=== PATIENT | female | born 2000 | race Caucasian/White ===

== ENCOUNTER 2019-03-01 19:41 | Day surgery (SDC) | payer OTHER ==
[2019-03-01 20:23] VITALS: BP 115/79; TEMP 99; BMI 26.7
[2019-03-01] MEDS ORDERED: hydrALAZINE 20 MG/ML VIAL SLOW IVP PRN (20:46)
[2019-03-01 20:48] LABS: Amnisure Test No Membranes Rupture (No Rupture)
[2019-03-01 20:49] LABS: Amnisure Internal Control QC ACCEPTABLE (ACCEPTABLE)
[2019-03-01] MEDS ORDERED: FLU VACC QS2019-20(6MOS UP)/PF 60 MCG/0.5 ML SYRINGE IM ONE (21:00)
--- NOTE | 2019-03-01 21:27 | PRG ---
DATE OF SERVICE: 03/01/2019 TIME: 2105. STERILE SPECULUM EXAMINATION: I explained to the patient and her family members the process of a sterile spec exam. The AmniSure returned negative. I performed a sterile spec to confirm that the AmniSure was valid. I do not see any true evidence of leakage with the speculum exam and the Valsalva and cough were not impressive. However, I suspect that she may have a mild yeast infection, so I collected a VPIII and we are calling the lab to make sure that this is being run Post-A-Vox. If it is not run Post-A-Vox, she will have to follow up tomorrow for these results again. Job ID: [id number]
--- NOTE | 2019-03-01 21:29 | HP ---
TIME OF EVALUATION: Roughly 2044. LOCATION: Triage. This is a patient of Dr. Gomes. CHIEF COMPLAINT: This is a patient who complains of "leakage" after being checked earlier today in the office by Dr. Gomes, who called her 2-3 cm dilated. HISTORY OF PRESENT ILLNESS: This is a 18-year-old, G1, P0, with a known history of epilepsy (stable), who is on Keppra, who presents now with an EDC of March 13, putting her at 38 weeks and 2 days, who states that she was checked in the office today and has a slow amount of leakage, but she denies a large gush of fluid or vaginal bleeding. She has good movement. She denies fevers. REVIEW OF SYSTEMS: Complete review of systems was checked and is otherwise negative unless specified in the HPI. PAST MEDICAL HISTORY: Significant for her epilepsy, for which she takes Keppra. PAST SURGICAL HISTORY: Tonsils and adenoids. ALLERGIES: NONE. OB HISTORY: She is a G1, P0. PHYSICAL EXAMINATION: VITAL SIGNS: Her blood pressure is 115/75, temperature is 99.0, her pulse is in the 90s, although it was initially 120 when she first arrived, possibly due to slight anxiety. Her O2 saturation is now 100% on room air, and respirations are 18 and nonlabored. ABDOMEN: Soft, nontender. PELVIC: Reveals a cervix of 2 cm dilation, 50% effaced, -2 and posterior (this was by the RN prior to calling me). Sterile speculum exam is pending as I am awaiting a speculum. Interventions ordered. I have ordered an AmniSure and that is pending. monitor, heart tones are category 1 and reassuring with a normal rate of about 130 to 140. Contractions are irregular and sporadic contractions. ASSESSMENT: This is a 18-year-old, G1, P0, at early term (38 weeks and 2 days) with "leakage" after exam today. Leakage of fluid may be part of the gel, which was used on the exam, or maybe rupture of membranes. I have ordered an AmniSure and sterile speculum to assess. PLAN: 1. AmniSure sent and pending. 2. Sterile speculum exam about to be performed. 3. We will admit if there is concern for rupture of membranes. Job ID: [id number]
--- NOTE | 2019-03-01 22:16 | PDOC.EVN ---
Event Note - Event Note Event Note: VP3 with BV and yeast: will give difllucan here and write a RX for flagyl x 7 days
[2019-03-01] MEDS ORDERED: Fluconazole 100 MG TAB PO SCH (22:30)
== END 2019-03-01 23:00 | disposition home or self-care (01) ==
LOC: L&D/OP 19:41
PROVIDERS: ATTEND Obstetrics & Gynecology
DX: O98.813 Other maternal infectious and parasitic diseases complicating pregnancy, third trimester (principal); B37.3 Candidiasis of vulva and vagina; O23.593 Infection of other part of genital tract in pregnancy, third trimester; B96.89 Other specified bacterial agents as the cause of diseases classified elsewhere; O99.353 Diseases of the nervous system complicating pregnancy, third trimester; G40.909 Epilepsy, unspecified, not intractable, without status epilepticus; Z3A.38 38 weeks gestation of pregnancy; Z79.899 Other long term (current) drug therapy
CPT/HCPCS: 84112; 87480; 87510; 87660; 99285

== ENCOUNTER 2019-03-10 14:05 | Inpatient (IN) | payer OTHER ==
[2019-03-10 14:34] VITALS: BMI 26.7
[2019-03-10] MEDS: Lactated Ringer's 1,000 ML IV SCH ×2 (14:57→15:45)
[2019-03-10] MEDS ORDERED: NS w/ Oxytocin 10 units 500 ML IV SCH (15:06)
[2019-03-10] MEDS ORDERED: Butorphanol Tartrate 1 MG/ML VIAL SLOW IVP PRN (15:06)
[2019-03-10] MEDS ORDERED: hydrALAZINE 20 MG/ML VIAL SLOW IVP PRN ×2 (15:06→18:40)
[2019-03-10] MEDS ORDERED: Promethazine HCl 25 MG/ML VIAL IM PRN (15:06)
[2019-03-10] MEDS ORDERED: NS / Oxytocin 40 units/1000ml 1,000 ML IV PRN (15:06)
[2019-03-10] MEDS ORDERED: Ondansetron PF 4 MG/2 ML Vial IVP PRN ×2 (15:06→18:40)
[2019-03-10] MEDS ORDERED: HYDROcodone/Acetaminophen 5/325 mg Tablet PO PRN ×4 (15:06→18:40)
[2019-03-10] MEDS ORDERED: Lidocaine 1% (PF) 30 ML VIAL SC PRN (15:06)
[2019-03-10] MEDS ORDERED: Lactated Ringer's 1,000 ML IV SCH (15:06)
[2019-03-10] MEDS ORDERED: Ibuprofen 800 MG TAB PO PRN (15:06)
[2019-03-10 15:26] LABS: Mean Corpuscular HGB CONC 32.5 g/dL (32.0-36.0); Mean Corpuscular Hemoglobin 24.7 pg (25.0-35.0); Mean Corpuscular Volume 75.9 fL (78.0-98.0); Mean Platelet Volume 8.6 fL (7.4-10.4); Platelet Count 267 thou/uL (130-400); RBC Distribution Width 13.1 % (11.5-14.5); Red Blood Cell (RBC) Count 4.85 mill/uL (4.00-5.20); White Blood Cell (WBC) Count 20.4 thou/uL (4.8-10.8)
--- NOTE | 2019-03-10 15:44 | PDOC.LDHP ---
Labor and Delivery H&P Chief complaint: contractions HPI: Pt is a 18yo G1 @ 39 weeks who presents in active labor. Current gestational age (weeks): 39 Due date: 03/13/19 Dating criteria: first trimester ultrasound (8 week US) Grav: 1 Current complications: none Past Medical History: seizure disorder, medication noncompliance (Keppra) Current medications: pre- vitamins, other (irregular Keppra use) Allergies/Adverse Reactions: Allergies Allergy/AdvReac Type Severity Reaction Status Date / Time No Known Allergies Allergy Verified 03/01/19 20:18 Social history: drug use (remote hx of MJ use, neg UDS in preg) - Physical Exam Vital signs reviewed and normal: yes General: NAD Lungs: nonlabored breathing Abdomen: gravid Extremeties: no edema FHT: category 1 - Vaginal Exam cm dilated: 6 Effacement: 75% - OB Labs Blood type: A RH: positive Antibody Screen: negative HIV: negative RPR: negative HEPSAg: negative 1 hour GCT: negative GBS: negative Urine drug screen: negative Rubella: immune - Assessment L&D Assessment: term patient in labor - Plan Plan: admit to L&D, labor augmentation if indicated, informed consent obtained, anesthesia consult for pain management
[2019-03-10 16:04] LABS: HBSAg Index 0.25 S/CO (0-0.99); Hep B Surf Ag Non-Reactive S/CO (NonReactive); Syphilis Antibody Nonreactive (Nonreactive); Syphilis Antibody Index 0.03 S/CO (<1.00 Non-Reactive)
--- NOTE | 2019-03-10 17:02 | PDOC.OPDEL ---
OB Operative/Delivery Note Delivery Dr/Surgeon: Gil/Eliseo Pre-Delivery Diagnosis: active labor Weeks gestation: 39 Anesthesia: local - Findings A Sex: male - 1 min: 9 - 5 min: 9 - Additional Findings/Plan Placenta delivered: spontaneous Repaired Obstetrical Laceration: 2nd degree Estimated blood loss: 250ml Compilations/Other Findings: Arrived w baby w mom delivered by Dr. Cordero and pt ready for repair of 2nd degree, at which time I scrubbed in. Post delivery plan: routine recovery
--- NOTE | 2019-03-10 17:09 | OP ---
DATE OF PROCEDURE: 03/10/2019 PREOPERATIVE DIAGNOSIS: Term labor, Dr. Graeme Rosales patient with precipitous progress to delivery. POSTOPERATIVE DIAGNOSIS: Term labor, Dr. Graeme Rosales patient with precipitous progress to delivery. PROCEDURE PERFORMED: Spontaneous vaginal delivery with second-degree midline laceration, remainder of repair completed by Dr. Graeme Gomse. DESCRIPTION OF PROCEDURE: The patient was a patient of Dr. Graeme Gomes who is an active labor, progressed rapidly to complete complete. Once she began pushing despite being a primigravida, she proceeded to +4 station in a very rapid course. I presented to the room at approximately 4:[address] Gomes had been called for delivery. The patient was prepped and draped in the usual manner and she proceeded to deliver spontaneously over a midline laceration at 4:42 p.m. With a vigorous male , Apgars and weight are pending. Umbilical cord was clamped and cut in the usual manner after delay of approximately a minute and the placenta delivered intact. A 10 mL of lidocaine was injected on each side of the midline laceration for repair. Dr. Graeme Gomes presented at this time and she completed the repair of the laceration. DYLAN on further notes under Dr. Gomes. Job ID: [id number] [facility]
[2019-03-10] MEDS ORDERED: Bisacodyl 10 MG SUPP PR PRN (18:40)
[2019-03-10] MEDS ORDERED: Lanolin Ointment 7 GM TUBE TOP PRN (18:40)
[2019-03-10] MEDS ORDERED: NS / Oxytocin 40 units/1000ml 1,000 ML IV SCH (18:40)
[2019-03-10] MEDS ORDERED: Benzocaine-Menthol 82.5 ML CAN TOP PRN (18:40)
[2019-03-10] MEDS ORDERED: Milk Of Magnesia 30 ML UDCUP PO PRN (18:40)
[2019-03-10] MEDS ORDERED: Preparation H Ointment 28 GM TUBE PR PRN (18:40)
[2019-03-10] MEDS ORDERED: diphenhydrAMINE 25 MG CAP PO PRN (18:40)
[2019-03-10] MEDS: Docusate Calcium (SURFAK) 240 MG CAP PO SCH (19:48)
[2019-03-10] MEDS: Ibuprofen 800 MG TAB PO SCH (19:48)
--- NOTE | 2019-03-11 03:22 | PDOC.PP ---
Post Progress Note Post Day #: 1 Subjective: Patient doing well. No significant overnight events. Tolerating PO. Lochia minimal. PO intake tolerated: yes Flatus: yes Ambulation: yes Vital Signs (12 hours) Temp Pulse Resp BP BP Pulse Ox 03/10/19 23:10 98.8 F 116 H 18 99/56 L 03/10/19 21:20 113 H 113/57 L 03/10/19 20:30 99.4 F 114 H 03/10/19 20:15 99.9 F H 111 H 20 109/61 99 03/10/19 19:20 98.9 F 108 H 18 124/70 99 Weight Weight 70.76 kg - Physical Examination General: NAD Deviation from normal: RRR during my examination Respiratory: non-labored breathing Abdominal: lochia (minimal), no distention, appropriately TTP Fundus firm & at: just above umbilicus Skin: no rash Neurological: no gross focal deficits Psychiatric: A&Ox3, normal affect Result Diagrams: 03/10/19 15:08 Additional Labs: Post Labs Blood Type A POSITIVE 03/10/19 17:25 Hep Bs Antigen Non-Reactive S/CO (NonReactive) 03/10/19 15:08 (1) Term delivered Code(s): O80 - ENCOUNTER FOR FULL-TERM UNCOMPLICATED DELIVERY Status: Acute (2) Vaginal delivery Code(s): O80 - ENCOUNTER FOR FULL-TERM UNCOMPLICATED DELIVERY Status: Acute - Assessment/Plan Routine PP care - PP day #1 s/p uncomplicated - Rubella immune, Rh positive - Meeting all PP milestones - GBS negative 2nd degree perineal laceration - s/p repair, hemostatic Seizure disorder - Noncompliant with Keppra Tachycardia, appears resolved - Pulse 108-116, repeat prior to exam 86 - BP low 100's systolic - Leukocytosis noted on initial CBC, will repeat - Afebrile, temp high to 99.9 - Patient asymptomatic Dispo: Stable. Plan for d/c home tomorrow.
[2019-03-11] MEDS: Ibuprofen 800 MG TAB PO SCH ×3 (05:03→21:11)
[2019-03-11 06:37] LABS: #Lymphocytes 3.8 thou/uL (1.20-3.40); #Monocytes 1.9 thou/uL (0.11-0.59); #Neutrophils 15.8 thou/uL (1.40-6.50); %Basophils 0.1 % (0.0-1.0); %Eosinophils 0.2 % (0.0-10.0); %Lymphocytes 17.7 % (28.0-48.0); %Monocytes 8.9 % (0.0-4.0); %Neutrophils 73.1 % (31.0-61.0); Hemoglobin 9.9 g/dL (12.0-16.0); Mean Corpuscular HGB CONC 32.8 g/dL (32.0-36.0); Mean Platelet Volume 8.3 fL (7.4-10.4); Platelet Count 283 thou/uL (130-400); RBC Distribution Width 13.1 % (11.5-14.5); Red Blood Cell (RBC) Count 3.96 mill/uL (4.00-5.20); White Blood Cell (WBC) Count 21.7 thou/uL (4.8-10.8)
[2019-03-11] MEDS: Prenatal Vitamin 1 TAB PO SCH (08:40)
[2019-03-11] MEDS: Docusate Calcium (SURFAK) 240 MG CAP PO SCH ×2 (08:40→21:10)
[2019-03-11] MEDS: Ferrous Sulfate 325 MG TAB PO SCH ×2 (08:40→16:40)
[2019-03-11] MEDS ORDERED: Adacel (T-DAP) 0.5 ML SYRINGE IM ONE (09:00)
[2019-03-11] MEDS ORDERED: FLU VACC QS2019-20(6MOS UP)/PF 60 MCG/0.5 ML SYRINGE IM ONE (09:00)
[2019-03-11 17:14] VITALS: TEMP 98.1
[2019-03-12] MEDS: Ibuprofen 800 MG TAB PO SCH ×2 (04:11→13:21)
[2019-03-12] MEDS: Docusate Calcium (SURFAK) 240 MG CAP PO SCH (09:07)
[2019-03-12] MEDS: Prenatal Vitamin 1 TAB PO SCH (09:07)
[2019-03-12] MEDS: Ferrous Sulfate 325 MG TAB PO SCH (09:07)
[2019-03-12 09:14] VITALS: BP 106/56
--- NOTE | 2019-03-13 12:34 | DIS ---
DATE OF ADMISSION: 03/10/2019 DATE OF DISCHARGE: 03/12/2019 ADMITTING DIAGNOSES: 1. Intrauterine at 39 weeks. 2. Active labor. 3. Seizure disorder. DISCHARGE DIAGNOSES: 1. Intrauterine at 39 weeks. 2. Active labor. 3. Seizure disorder. PROCEDURE: Term spontaneous vaginal delivery. HOSPITAL COURSE: The patient is a 18-year-old female at 39 weeks, who presented to Labor and Delivery in active labor. She was admitted for expectant management. Her labor course resulted in a term uncomplicated vaginal delivery, precipitous in nature. For complete details, please refer to the operative note. Her course has been uncomplicated. She is now day #2. She reports today that she is having good pain control, tolerating a diet, ambulating, having decreased lochia. PHYSICAL EXAMINATION: VITAL SIGNS: Most recent vital signs; blood pressure is 106/58, temperature 98.1, pulse of 83, respiratory rate of 16, saturating 99% on room air. GENERAL: She appears to be in no acute distress. She is alert, oriented, cooperative, and pleasant to interact with. HEENT: Head is normocephalic and atraumatic. Fundus is firm at the umbilicus. EXTREMITIES: Nontender. Nonedematous. LABORATORY DATA: Post delivery hemoglobin is 9.9, hematocrit 30.1, and platelets of 283,000. DISCHARGE INSTRUCTIONS: The patient is being discharged to home. She has instructions to follow up with Ms. Ciera Sutherland in 6 weeks or sooner if she experiences fever, increased bleeding or pain. She is being discharged to home with ibuprofen for pain control. Job ID: [id number]
== END 2019-03-12 13:30 | disposition home or self-care (01) | DRG 806 ==
LOC: L&D/OP 14:05 → L&D 15:07 → 3SW 19:37
PROVIDERS: ADMIT Obstetrics & Gynecology; ATTEND Obstetrics & Gynecology
PROC: 0KQM0ZZ Repair Perineum Muscle, Open Approach (ICD-10-PCS; principal; 2019-03-10)
PROC: 10E0XZZ Delivery of Products of Conception, External Approach (ICD-10-PCS; 2019-03-10)
DX: O62.3 Precipitate labor (principal); O99.354 Diseases of the nervous system complicating childbirth; Z37.0 Single live birth; O99.12 Other diseases of the blood and blood-forming organs and certain disorders involving the immune mechanism complicating childbirth; O70.1 Second degree perineal laceration during delivery; Z3A.39 39 weeks gestation of pregnancy; D72.829 Elevated white blood cell count, unspecified
CPT/HCPCS: 36415; 85025; 85027; 86780; 86850; 86900; 86901; 87340; 99285; J0595; J2001